=== PATIENT | female | born 2000 | race Hispanic/Latino ===

== ENCOUNTER → 2021-04-07 | Emergency (ER) | payer MEDICAID, OTHER ==
[~2021-04-07] MED LIST: ACETAMINOPHEN EXTRA STRENGTH 500 MG TABLET ONE; KETOROLAC TROMETHAMINE 60 MG/2 ML VIAL ONE; SULFAMETHOX-TMP DS 800/160 TAB ONE
== END ==
LOC: EDH 22:45
DX: L03.012 Cellulitis of left finger (principal); M79.645 Pain in left finger(s)
CPT/HCPCS: 96372; 99283; J1885